=== PATIENT | female | born 1945 | race Caucasian/White ===

== ENCOUNTER 2019-02-27 22:59 | Emergency (ER) | payer MEDICARE, OTHER ==
--- NOTE | 2019-02-28 00:21 | EDM.PDOC ---
ED HPI GENERAL MEDICAL PROBLEM - General Chief Complaint: Cardiovascular Problem Stated Complaint: BLOOD PRESSURE HIGH Time Seen by Provider: 02/28/19 00:19 Source of Information: Reports: Patient History Limitations: Reports: No Limitations - History of Present Illness INITIAL COMMENTS - FREE TEXT/NARRATIVE: worried her BP been high since , saw PMD told to monitor and come to ER if remains high. denies CP/SOB/HUTCHISON. denies drinking coffee, last one 4pm. denies excess work or feeling stress. but all this started after her catching a cold. - Related Data Allergies Allergy/AdvReac Type Severity Reaction Status Date / Time CODEINE SULFATE Allergy Unknown UNKNOWN Uncoded 02/28/19 00:05 ERYTHROMYCIN Allergy Unknown UNKNOWN Uncoded 02/28/19 00:05 Home Meds: Home Meds Aspirin [Ecotrin EC] 325 mg PO DAILY 02/28/19 [History] Omeprazole 20 mg PO DAILY 02/28/19 [History] Simvastatin 10 mg PO DAILY 02/28/19 [History] lisinopriL [Lisinopril] 5 mg PO DAILY 02/28/19 [History] ED ROS GENERAL - Review of Systems Review Of Systems: Comprehensive ROS is negative, except as noted in HPI. ED EXAM, GENERAL - Physical Exam Exam: See Below Exam Limited By: No Limitations General Appearance: Alert, WD/WN, Anxious Ears: Hearing Grossly Normal Throat/Mouth: Normal Voice, No Airway Compromise Head: Atraumatic Neck: Non-Tender, Full Range of Motion Respiratory/Chest: No Respiratory Distress Cardiovascular: Regular Rate, Rhythm GI/Abdominal: Soft, Non-Tender Neurological: Alert, Oriented, Normal Cognition, Normal Gait, No Motor/Sensory Deficits Psychiatric: Anxious Skin Exam: Warm, Dry, Normal Color Lymphatic: No Adenopathy Course - Vital Signs Last Recorded V/S: Last Vital Signs Temp 36.7 C 02/28/19 00:02 Pulse 89 02/28/19 00:02 Resp 18 02/28/19 00:02 BP 166/84 H 02/28/19 00:02 Pulse Ox 95 02/28/19 00:02 - Orders/Labs/Meds Orders: Active Orders 24 hr Category Date Time Status cephALEXin [Keflex] Med 02/28/19 01:10 Once 250 mg PO ONETIME ONE Labs: Laboratory Tests 02/28/19 02/28/19 Range/Units 00:25 00:25 WBC 7.1 (5.0-10.0) 10^3/uL RBC 4.48 (4.2-5.4) 10^6/uL Hgb 13.3 (12.0-16.0) g/dL Hct 40.4 (37.0-47.0) % MCV 90.2 (80-100) fL MCH 29.7 (27.0-34.0) pg MCHC 32.9 L (33.0-35.0) g/dL Plt Count 301 (150-450) 10^3/uL Neut % (Auto) 59.4 (42.2-75.2) % Lymph % (Auto) 27.4 (20.5-50.1) % [place] % (Auto) 8.9 H (2-8) % Eos % (Auto) 3.9 H (1.0-3.0) % Baso % (Auto) 0.4 (0.0-1.0) % Sodium 141 (135-145) mmol/L Potassium 4.2 (3.6-5.0) mmol/L Chloride 108 (101-111) mmol/L Carbon Dioxide 24.0 (21.0-31.0) mmol/L Anion Gap 13.2 BUN 16 (7-18) mg/dL Creatinine 0.8 (0.6-1.3) mg/dL Est Cr Clr Drug Dosing 60.38 mL/min Estimated GFR (MDRD) > 60 BUN/Creatinine Ratio 20.00 Glucose 118 H (74-105) mg/dL Calcium 9.1 (8.4-10.2) mg/dl Total Bilirubin 0.4 (0.2-1.0) mg/dL AST 17 (10-42) IU/L ALT 17 (10-60) IU/L Alkaline Phosphatase 69 (42-121) IU/L Troponin I < 0.02 (0.00-0.02) ng/ml Total Protein 7.2 (6.7-8.2) g/dl Albumin 4.1 (3.2-5.5) g/dl Globulin 3.1 Albumin/Globulin Ratio 1.32 - Re-Assessments/Exams Free Text/Narrative Re-Assessment/Exam: 02/28/19 01:11 results discussed with pt. BP much better Departure - Departure Time of Disposition: 01:12 Disposition: Home, Self-Care 01 Condition: Good Clinical Impression: Bronchitis Hypertension Qualifiers: Hypertension type: unspecified Qualified Code(s): I10 - Essential (primary) hypertension Instructions: Upper Respiratory Infection, Adult, [id number] Forms: ED Department Discharge Additional Instructions: 1) rest 2) drink lots of liquids 3) follow up at clinic rx given; keflex 250mg qid x 1 week Sepsis Event Note - Evaluation Sepsis Screening Result: No Definite Risk - Focused Exam Vital Signs: Vital Signs Temp Pulse Resp BP Pulse Ox 02/28/19 00:02 36.7 C 89 18 166/84 H 95 Date Exam was Performed: 02/28/19 Time Exam was Performed: 01:11 - My Orders Last 24 Hours: My Active Orders 02/28/19 01:10 cephALEXin [Keflex] 250 mg PO ONETIME ONE - Assessment/Plan Last 24 Hours: My Active Orders 02/28/19 01:10 cephALEXin [Keflex] 250 mg PO ONETIME ONE
[2019-02-28 00:58] LABS: ANION GAP 13.2; CHLORIDE,CL 108 mmol/L (101-111); SODIUM,NA 141 mmol/L (135-145)
[2019-02-28] MEDS ORDERED: Cephalexin 250 MG Cap PO ONE (01:10)
== END 2019-02-28 01:25 | disposition home or self-care (01) ==
LOC: DL.ED 22:59
DX: I10 Essential (primary) hypertension (principal); J40 Bronchitis, not specified as acute or chronic; Z88.5 Allergy status to narcotic agent; Z88.1 Allergy status to other antibiotic agents; Z79.82 Long term (current) use of aspirin; Z79.899 Other long term (current) drug therapy
CPT/HCPCS: 36415; 80053; 84484; 85025; 99283; A9270

== ENCOUNTER 2024-06-08 05:55 | Day surgery (SDC) | payer MEDICARE, OTHER ==
[2024-06-08] MEDS ORDERED: fentaNYL 100 MCG/2 ML SDV IV ONE (06:19)
[2024-06-08] MEDS ORDERED: Midazolam 1 MG/ML 2 ML SDV ONE (06:19)
[2024-06-08] MEDS ORDERED: fentaNYL 100 MCG/2 ML SDV ONE (06:19)
[2024-06-08] MEDS ORDERED: Midazolam 1 MG/ML 2 ML SDV IV ONE (06:19)
[2024-06-08] MEDS: Dextrose 5%-0.45% NaCl 1,000 ML IV SCH (06:21)
[2024-06-08] MEDS: fentaNYL 100 MCG/2 ML SDV IV ONE ×2 (06:50)
[2024-06-08] MEDS: Midazolam 1 MG/ML 2 ML SDV IV ONE ×6 (06:51→07:18)
== END 2024-06-08 09:13 | disposition home or self-care (01) ==
LOC: DL.ENDO 05:55
PROVIDERS: ATTEND Internal Medicine Gastroenterology
DX: K64.8 Other hemorrhoids (principal); K57.31 Diverticulosis of large intestine without perforation or abscess with bleeding; K59.00 Constipation, unspecified
CPT/HCPCS: 45378; J2250; J3010